=== PATIENT | female | born 1985 | race American Indian/Alaskan Native ===

== ENCOUNTER 2016-08-05 11:09 | Emergency (ER) | payer MEDICAID ==
--- NOTE | 2016-08-05 14:56 | Cat Scan Report ---
CT ORBITS WITHOUT CONTRAST: HISTORY: Right periorbital edema and pain. TECHNIQUE: Helical CT with sagittal and coronal reformatted images. FINDINGS: The visualized osseous structures are intact without fracture or malalignment. The paranasal sinuses are clear. The nasal septum is midline. The orbital rims are intact. The globes are symmetric with homogeneous density. The retro-orbital fat demonstrates no inflammatory stranding. The extraocular muscles are symmetric. The extraocular muscles and optic nerves demonstrate normal course. IMPRESSION: Normal CT of the orbits.
[2016-08-05] MEDS ORDERED: BENADRYL PO ONE (15:14)
[2016-08-05] MEDS ORDERED: DECADRON IM ONE (15:14)
[2016-08-05] MEDS ORDERED: PEPCID PO ONE (15:14)
[2016-08-05] MEDS ORDERED: TORADOL IM ONE (15:15)
[2016-08-05 17:07] VITALS: BP 116/82
--- NOTE | 2016-08-05 17:07 | Emergency Department Report ---
Entered by MILLICENT NEVILLE, acting as scribe for BROOKE REYES PA. ED Eye Problem HPI - General Chief complaint: Eye Problems Stated complaint: BLURRY VISION/EYE SWOLLEN Time Seen by Provider: 08/05/16 12:27 Source: patient Mode of arrival: Ambulatory Limitations: No Limitations - History of Present Illness Initial comments: 31 year old female with no significant PMHx presents to the ED c/o right eye swelling and pain that began this morning at 06:00. Patients states she applied an ice pack at 06:00 and went back to sleep. She woke up again at 09:00 this morning with right eye swelling and pain worse. Rates inner and outer right eye pain an 8/10, which radiates to the right side of head. Denies known injury or trauma. Associated symptoms include minimal blurry vision, headache, right eye itching and pain, but denies right eye trauma, fever, nausea, vomiting, purulent drainage, SOB, sore throat, numbness, tingling, abdominal pain, and chest pain. NKDA. MCKEON chief complaint: eye pain (right), other (right eye swelling) -: This morning (06:00) Onset Description: sudden Location: right eye Place: home If Injury: none Eye Symptoms: pain, itching, discharge (watery clear teary discharge), blurry vision Severity: moderate Severity scale (0 -10): 8 If Pain, Quality: aching Consistency: constant Associated Symptoms: headache (right side), neck pain (right side). denies: fever, shortness of breath Treatments Prior to Arrival: ice - Related Data Previous Rx's Medication Instructions Recorded Last Taken Type diphenhydrAMINE [Benadryl CAP] 25 mg PO Q6HR PRN #40 capsule 08/05/16 Unknown Rx predniSONE [Deltasone] 20 mg PO QDAY #5 tab 08/05/16 Unknown Rx Allergies Allergy/AdvReac Type Severity Reaction Status Date / Time No Known Allergies Allergy Unverified 08/05/16 11:48 ED Review of Systems Comment: All other systems reviewed and negative Constitutional: denies: chills, fever Eyes: eye pain (right eye), vision change (blurred), other. denies: eye discharge ENT: denies: ear pain, throat pain, congestion Respiratory: denies: cough, orthopnea, shortness of breath, SOB with exertion, SOB at rest, stridor Cardiovascular: denies: chest pain, dyspnea on exertion, orthopnea Gastrointestinal: denies: abdominal pain, nausea, vomiting Musculoskeletal: other (right side of neck pain) Skin: denies: rash Neurological: headache (right side) ED Past Medical Hx - Past Medical History Previous Medical History?: No - Surgical History Past Surgical History?: Yes Hx Cholecystectomy: Yes Additional Surgical History: - Social History Smoking Status: Never Smoker Substance Use Type: Alcohol - Medications Home Medications: Home Medications Medication Instructions Recorded Confirmed Last Taken Type diphenhydrAMINE [Benadryl CAP] 25 mg PO Q6HR PRN #40 capsule 08/05/16 Unknown Rx predniSONE [Deltasone] 20 mg PO QDAY #5 tab 08/05/16 Unknown Rx ED Physical Exam - General Limitations: No Limitations General appearance: alert, in no apparent distress - Head Head exam: Present: atraumatic, normocephalic, other (right frontal head tenderness) - Eye Eye exam: Present: normal appearance, PERRL, EOMI (Pain with medial eye movement ), periorbital swelling, periorbital tenderness, other (right eye tenderness). Absent: scleral icterus, conjunctival injection Pupils: Present: normal accommodation - Expanded Eye Exam Expanded Eyelids: Swelling: Bilateral Pupils: Regular, Round: Bilateral, Reactive: Bilateral Sclera/Conjunctival: Normal Inspection: Bilateral Anterior chamber: Normal Inspection: Bilateral Posterior chamber: Deferred: Bilateral Visual acuity (R) = 20/: 40 Visual acuity (L) = 20/: 70 With correction: Yes - ENT ENT exam: Present: normal exam, mucous membranes moist, TM's normal bilaterally , normal external ear exam - Neck Neck exam: Present: normal inspection, full ROM. Absent: tenderness, meningismus, lymphadenopathy - Respiratory Respiratory exam: Present: normal lung sounds bilaterally. Absent: respiratory distress, wheezes, rales, rhonchi, stridor - Cardiovascular Cardiovascular Exam: Present: regular rate, normal rhythm. Absent: systolic murmur, diastolic murmur, rubs, gallop - GI/Abdominal GI/Abdominal exam: Present: soft. Absent: distended, tenderness, guarding, rebound, rigid - Extremities Exam Extremities exam: Present: normal inspection, full ROM - Back Exam Back exam: Present: normal inspection, full ROM - Neurological Exam Neurological exam: Present: alert, oriented X3 - Psychiatric Psychiatric exam: Present: normal affect, normal mood - Skin Skin exam: Present: warm, dry, intact. Absent: rash ED Course Vital Signs 08/05/16 08/05/16 08/05/16 11:49 15:45 16:30 Temperature 98.0 F Pulse Rate 60 74 Respiratory 18 18 18 Rate Blood Pressure 117/71 Blood Pressure 132/84 [Left] O2 Sat by Pulse 100 100 Oximetry ED Medical Decision Making - Lab Data Vital Signs 08/05/16 08/05/16 08/05/16 11:49 15:45 16:30 Temperature 98.0 F Pulse Rate 60 74 Respiratory 18 18 18 Rate Blood Pressure 117/71 Blood Pressure 132/84 [Left] O2 Sat by Pulse 100 100 Oximetry - Radiology Data Radiology results: report reviewed CT ORBITS WITHOUT CONTRAST: HISTORY: Right periorbital edema and pain. TECHNIQUE: Helical CT with sagittal and coronal reformatted images. FINDINGS: The visualized osseous structures are intact without fracture or malalignment. The paranasal sinuses are clear. The nasal septum is midline. The orbital rims are intact. The globes are symmetric with homogeneous density. The retro-orbital fat demonstrates no inflammatory stranding. The extraocular muscles are symmetric. The extraocular muscles and optic nerves demonstrate normal course. IMPRESSION: Normal CT of the orbits. - Medical Decision Making 31-year-old female presents today with right eye pain and periorbital swelling. Her CT scan is within normal limits. Patient reported some symptomatic relief post medication. Referral for ophthalmology has been provided. Patient is in no acute distress at this time. She will be discharged home and is encouraged to follow up with a primary care provider. She will be sent home on Benadryl and steroids and is encouraged to return to the emergency room for any worsening symptoms. 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 Return to the emergency department if symptoms worsen. Prescriptions: diphenhydrAMINE [Benadryl CAP] 25 mg PO Q6HR PRN #40 capsule PRN Reason: Itching predniSONE [Deltasone] 20 mg PO QDAY #5 tab Referrals: PRIMARY CARE, [Primary Care Provider] - 3-5 Days HENRY SANTO MD [Staff Physician] - 3-5 Days Forms: Work/School Release Form(ED), Accompanied Note Time of Disposition: 17:01 This documentation as recorded by the JAMIN gallagher JASMINE,accurately reflects the service I personally performed and the decisions made by ERIC garcia NATASHA, PA.
== END 2016-08-05 17:06 | disposition home or self-care (01) ==
LOC: ED 11:09
DX: T78.40XA Allergy, unspecified, initial encounter (principal)
CPT/HCPCS: 70480; 81025; 96372; 99284; J1100; J1885

== ENCOUNTER 2016-12-14 11:37 | Emergency (ER) | payer MEDICAID, OTHER ==
[2016-12-14 12:35] VITALS: BP 118/99
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
== END 2016-12-14 17:54 | disposition home or self-care (01) ==
LOC: ED 11:37
DX: R51 Headache (principal); M54.9 Dorsalgia, unspecified; V49.59XA Passenger injured in collision with other motor vehicles in traffic accident, initial encounter; Y92.488 Other paved roadways as the place of occurrence of the external cause; Y93.89 Activity, other specified; Y99.9 Unspecified external cause status
CPT/HCPCS: 36415; 72070; 72100; 84703; 99283

== ENCOUNTER 2018-05-18 05:25 | Inpatient (IN) | payer OTHER ==
[2018-05-18] MEDS ORDERED: LACTATED RINGERS 2,000 ML ONE (06:06)
[2018-05-18] MEDS ORDERED: PEPCID IV ONE ×2 (06:07→11:10)
[2018-05-18] MEDS ORDERED: REGLAN IV ONE (06:07)
[2018-05-18] MEDS ORDERED: BICITRA PO ONE (06:07)
[2018-05-18] MEDS: LACTATED RINGERS 1,000 ML IV SCH ×2 (06:15→07:00)
[2018-05-18 06:33] LABS: Basophils # (Auto) 0.1 K/mm3 (0.0-0.1); Basophils % (Auto) 0.9 % (0.0-1.8); Eosinophils # (Auto) 0.1 K/mm3 (0.0-0.4); Eosinophils % (Auto) 1.2 % (0.0-4.3); Hematocrit 38.3 % (30.3-42.9); Hemoglobin 13.2 gm/dl (10.1-14.3); Lymphocytes # (Auto) 2.3 K/mm3 (1.2-5.4); Lymphocytes % (Auto) 30.2 % (13.4-35.0); Mean Corpuscular HGB Conc 34 % (30-34); Mean Corpuscular Volume 92 fl (79-97); Monocytes # (Auto) 0.9 K/mm3 (0.0-0.8); Monocytes % (Auto) 11.7 % (0.0-7.3); Platelet Count 295 K/mm3 (140-440); Red Blood Count 4.15 M/mm3 (3.65-5.03); Red Cell Distribution Width 14.2 % (13.2-15.2)
[2018-05-18] MEDS ORDERED: PITOCin/NS 20 UNIT/1000ML DRIP 20 UNITS/1,000 ML BAG IV SCH ×2 (07:00→14:00)
[2018-05-18] MEDS ORDERED: ANCEF/STERILE WATER 2 GM/20 ML 2 GM/20 ML SYRINGE IV NR (07:00)
[2018-05-18] MEDS ORDERED: DILAUDID IV PRN ×2 (10:51)
[2018-05-18] MEDS ORDERED: ZOFRAN IV PRN (10:51)
[2018-05-18] MEDS ORDERED: PHENERGAN PO PRN (10:51)
[2018-05-18] MEDS ORDERED: PHENERGAN PR PRN (10:51)
[2018-05-18] MEDS ORDERED: BENADRYL IV PRN (10:51)
[2018-05-18] MEDS ORDERED: NARCAN 0.4 MG/1 ML IV PRN ×2 (10:51→13:01)
--- NOTE | 2018-05-18 10:51 | Anesthesia Consultation ---
Anesthesia Consult and Med Hx Date of service: 05/18/18 - Airway Anesthetic Teeth Evaluation: Good ROM Head & Neck: Adequate Mental/Hyoid Distance: Adequate Mallampati Class: Class III Intubation Access Assessment: Possibly Difficult - Pre-Operative Health Status ASA Pre-Surgery Classification: ASA3 Proposed Anesthetic Plan: Epidural, Spinal - Pulmonary Hx Asthma: No COPD: No Hx Pneumonia: No - Cardiovascular System Hx Hypertension: No - Central Nervous System Hx Seizures: No Hx Psychiatric Problems: No - Endocrine Hx Renal Disease: No Hx End Stage Renal Disease: No Hx Insulin Dependent Diabetes: Yes (GDM on insulin) Hx Hypothyroidism: No Hx Hyperthyroidism: No - Hematic Hx Anemia: No Hx Sickle Cell Disease: No - Other Systems Hx Alcohol Use: No Hx Obesity: Yes (BMI 54.8)
--- NOTE | 2018-05-18 10:51 | Anesthesia Day of Surgery ---
Anesthesia Day of Surgery - Day of Surgery Patient Examined: Yes Patient H&P Reviewed: Yes Patient is NPO: Yes
[2018-05-18] MEDS ORDERED: TORADOL IV PRN (10:52)
[2018-05-18] MEDS ORDERED: SODIUM CHLORIDE FLUSH SYRINGE 10 ML IV SCH ×2 (11:00→14:00)
[2018-05-18] MEDS ORDERED: REGLAN ONE (11:10)
[2018-05-18] MEDS ORDERED: BICITRA ONE (12:19)
--- NOTE | 2018-05-18 12:57 | History and Physical Report ---
History of Present Illness Date of examination: 05/18/18 Date of admission: 05/18/18 05:25 Chief complaint: Previous History of present illness: 32-year-old 0-1 at 38+1 weeks who presents for a repeat delivery. The patient initiated care at [facility] at 13 weeks estimated gestational age. Her course is complicated by morbid obesity. gestational diabetes A2, and previous delivery. Past History Past Medical History: other (morbid obesity) Past Surgical History: cholecystectomy, section Social history: single - Obstetrical History Expected Date of Delivery: 05/31/18 Actual Gestation: 38 Week(s) 1 Day(s) : 4 Para: 1 Hx # Term Pregnancies: 1 Number of Pregnancies: 0 Spontaneous Abortions: 1 Induced : 1 Number of Living Children: 1 Medications and Allergies Allergies Allergy/AdvReac Type Severity Reaction Status Date / Time No Known Allergies Allergy Verified 05/18/18 06:07 Home Medications Medication Instructions Recorded Confirmed Last Taken Type Insulin NPH Human Isophane 28 units SQ HS 05/18/18 05/18/18 05/18/18 History [Humulin N] Insulin NPH Human Isophane 42 units SQ DAILY 05/18/18 05/18/18 05/17/18 History [Humulin N] Insulin Regular, Human [Humulin R] 20 units SQ DAILY 05/18/18 05/18/18 05/17/18 History Insulin Regular, Human [Humulin R] 40 units SQ HS 05/18/18 05/18/18 05/17/18 History Pnv No.95/Ferrous Fum/Folic AC 1 tab PO DAILY 05/18/18 05/18/18 05/17/18 History [ Vitamin Tablet] Active Meds: Active Medications Diphenhydramine HCl (Benadryl) 12.5 mg IV Q2H PRN PRN Reason: Itching Hydromorphone HCl (Dilaudid) 0.5 mg IV Q5M PRN PRN Reason: Breakthrough Pain Stop: 05/18/18 23:00 Hydromorphone HCl (Dilaudid) 0.5 mg IV Q4H PRN PRN Reason: breakthrough pain > 7/10 Cefazolin Sodium (Ancef/Sterile Water 2 Gm/20 Ml) 2 gm in 20 mls @ 80 mls/hr IV PREOP NR; Protocol Stop: 05/18/18 23:45 Lactated Ringer's (Lactated Ringers) 1,000 mls @ 2,250 mls/hr IV PREOP EVANGELINA Stop: 05/19/18 07:27 Last Admin: 05/18/18 07:00 Dose: 2,250 mls/hr Documented by: Oxytocin/Sodium Chloride (Pitocin/Ns 20 Unit/1000ml Drip) 20 units in 1,000 mls @ 0 mls/hr IV TITR EVANGELINA Ketorolac Tromethamine (Toradol) 30 mg IV Q6H PRN PRN Reason: Pain, Moderate (4-6) Stop: 05/23/18 10:51 Naloxone HCl (Narcan 0.4 Mg/1 Ml) 0.2 mg IV Q2MIN PRN PRN Reason: Res Rate </= 8 or 02 SAT < 92% Ondansetron HCl (Zofran) 4 mg IV Q8H PRN PRN Reason: Nausea And Vomiting Promethazine HCl (Phenergan) 25 mg PO Q6H PRN PRN Reason: Nausea And Vomiting Promethazine HCl (Phenergan) 25 mg [place] Q6H PRN PRN Reason: Nausea And Vomiting Sodium Chloride (Sodium Chloride Flush Syringe 10 Ml) 10 ml IV PRN EVANGELINA Review of Systems All systems: negative - Vital Signs Vital signs: Vital Signs Temp Pulse Resp BP 98.4 F 80 18 124/61 05/18/18 06:19 05/18/18 06:19 05/18/18 06:19 05/18/18 06:19 Temp Pulse Resp BP Pulse Ox 98.4 F 80 18 124/61 05/18/18 06:19 05/18/18 06:19 05/18/18 06:19 05/18/18 06:19 - Physical Exam Breasts: Positive: deferred Cardiovascular: Regular rate Lungs: Positive: Clear to auscultation Abdomen: Positive: other (obese) Results Result Diagrams: 05/18/18 06:19 Abnormal lab results 05/18/18 Range/Units 06:19 [place] % (Auto) 11.7 H (0.0-7.3) % [place] # 0.9 H (0.0-0.8) K/mm3 All other labs normal. Assessment and Plan - Patient Problems (1) Previous delivery affecting Current Visit: Yes Status: Acute Plan to address problem: Admit for a repeat delivery (2) Gestational diabetes mellitus, class A2 Current Visit: Yes Status: Acute (3) Morbid obesity Current Visit: Yes Status: Acute
[2018-05-18] MEDS ORDERED: TYLENOL PO PRN (13:01)
[2018-05-18] MEDS ORDERED: TUCKS PAD TP PRN (13:01)
[2018-05-18] MEDS ORDERED: LANSINOH TP PRN (13:01)
[2018-05-18] MEDS ORDERED: SENSORCAINE/DEXTR 0.75-8.25% INFILTRATI ONE (13:12)
[2018-05-18] MEDS ORDERED: NEO SYNEPHRINE/NS Syringe(OR USE) IV ONE ×3 (13:29→13:53)
[2018-05-18] MEDS ORDERED: WATER FOR IRRIG STERILE IR ONE (13:50)
[2018-05-18] MEDS ORDERED: NACL 0.9% IR ONE (13:50)
[2018-05-18] MEDS ORDERED: D5LR 1,000 ML IV SCH (14:00)
[2018-05-18] MEDS ORDERED: ASTRAMORPH PF 10MG/10ML ONE (14:14)
[2018-05-18] MEDS ORDERED: ZOFRAN ONE (14:16)
--- NOTE | 2018-05-18 14:43 | Operative Report ---
Operative Report Operative Report: Date of surgery: 05/18/2018 Preoperative diagnosis: at 38+1 weeks; status previous delivery; gestational diabetes A2; morbid obesity Postoperative diagnosis: Same as above Procedure: Repeat low transverse delivery Surgeon: Maribeth Thao M.D. Anesthesia: Regional Estimated blood loss: 800 mL Findings: Liveborn male with Apgars of 8 and 9 weight 7 lbs. 11 oz. Indications: A 32-year-old at 38+1 weeks who presents for repeat delivery secondary to gestational diabetes insulin requiring. Procedure: The patient was taken to the operating room and given regional anesthesia without complication. She was prepped and draped in a normal sterile fashion. A Pfannenstiel skin incision was made down to layer the fascia which was nicked in the midline extended laterally with the Bovie cautery. The superior aspect of the rectus fascia was grasped with Dundee clamps x2 and the rectus muscles off sharply. This was done in inferior fashion as well. The rectus muscle midline and peritoneum entered bluntly. There were peritoneal adhesions to the rectus muscles that were lysed with sharp dissection. An Cleve retractor was then inserted. A bladder blade was placed. The vesicouterine peritoneum was then entered sharply with Metzenbaum scissors. A bladder flap was created digitally. A low transverse uterine incision was then made and extended digitally. There was clear fluid upon entry into the uterine cavity. The head was delivered through the incision with fundal pressure. The cord was clamped and cut x2 and infant was passed off to pediatrics. The placenta was then manually extracted. The uterus was then exteriorized and cleared of clots and debris. The uterine incision was then closed in a running locked fashion with 0 Vicryl additional imbricating stitch was applied for 2 layer closure. The posterior cul-de-sac was then copiously irrigated. The uterus was replaced back into the abdomen and pelvis were the gutters were then irrigated. The Cleve retractor was then removed. The peritoneum was then reapproximated with 3-0 Vicryl incorporating the rectus muscle. The fascia was then closed with 0 Vicryl in a running fashion. The skin was then reapproximated with 3-0 Monocryl on a Collin needle subcuticular fashion. Steri-Strips to place across the incision and a Crede procedures performed at the end of the surgery. A pressure dressing was applied to the incision. The surgery productive of a liveborn male infant with Apgars of 8 and 9 weight 7 lbs. 11 oz. The patient was taken to the recovery room in stable condition. All sponge laps and needle counts correct x2.
[2018-05-18] MEDS: BENADRYL PO PRN (18:31)
[2018-05-18] MEDS ORDERED: NACL 0.9% 1000 ML 1,000 ML ONE (22:32)
[2018-05-18] MEDS ORDERED: NACL 0.9% 1000 ML 1,000 ML IV SCH (23:00)
[2018-05-19] MEDS: BENADRYL PO PRN ×4 (00:19→21:00)
[2018-05-19 00:57] LABS: Hematocrit 34.8 % (30.3-42.9); Hemoglobin 11.8 gm/dl (10.1-14.3)
[2018-05-19] MEDS: IBUPROFEN PO PRN ×2 (05:51→16:25)
--- NOTE | 2018-05-19 08:24 | Progress Note ---
Assessment and Plan - Patient Problems (1) Previous delivery affecting Current Visit: Yes Status: Acute Plan to address problem: routine postop care anticipate discharge home tomorrow (2) Gestational diabetes mellitus, class A2 Current Visit: Yes Status: Acute (3) Morbid obesity Current Visit: Yes Status: Acute Subjective - Subjective Date of service: 05/19/18 Interval history: Patient is tolerating clears. Sharp removed this am. States pain is controlled. Patient reports: appetite normal, pain well controlled : doing well Objective - Vital Signs Latest vital signs: Vital Signs Temp Pulse Resp BP BP Pulse Ox 05/19/18 04:26 99.0 F 97 H 20 121/60 94 05/19/18 00:15 86 20 120/76 97 05/18/18 21:45 99.0 F 99 H 20 116/65 97 05/18/18 16:25 99.6 F 87 18 127/58 05/18/18 16:24 71 144/84 05/18/18 16:00 98.2 F 74 20 104/70 100 05/18/18 15:45 69 18 109/59 100 05/18/18 15:30 72 20 116/67 100 05/18/18 15:15 67 20 130/76 100 05/18/18 15:00 72 16 104/62 100 05/18/18 14:55 70 18 114/62 100 05/18/18 14:48 97.8 F 72 20 115/59 100 05/18/18 13:33 89 136/85 05/18/18 13:25 86 136/86 Intake and Output 05/18/18 05/19/18 05/19/18 22:59 06:59 14:59 Intake Total 100 Output Total 650 Balance -550 Intake: Oral 100 Output: Urine 650 Indwelling Catheter 350 Other: Total, Intake Amount 100 Total, Output Amount 350 - Exam Abdomen: Present: other (obese) Incision: Present: dressed
[2018-05-19] MEDS: PERCOCET 5/325 PO PRN ×2 (16:24→21:01)
[2018-05-19] MEDS ORDERED: TRIPLE ANTIBIOTIC TP SCH (20:00)
[2018-05-19] MEDS: MYLICON PO PRN (21:18)
[2018-05-20] MEDS: IBUPROFEN PO PRN ×2 (03:59→14:15)
--- NOTE | 2018-05-20 12:27 | Progress Note ---
Assessment and Plan POD 2 s/p rltcs for gestational diabetes. Doing well. is in NICU due to low blood sugars. Will plan to stay until tomorrow unless otherwise indicated. Subjective - Subjective Date of service: 05/20/18 Patient reports: appetite normal, voiding normally, pain well controlled, flatus, ambulating normally : in NICU Objective - Vital Signs Latest vital signs: Vital Signs Temp Pulse Resp BP BP 05/20/18 00:55 98.6 F 66 18 114/72 05/19/18 16:01 98.7 F 20 121/71 Intake and Output 05/19/18 05/20/18 05/20/18 22:59 06:59 14:59 Intake Total 840 Balance 840 Intake: Intake, Free Water 840 - Exam Breasts: Present: deferred Cardiovascular: Present: Regular rate, Normal S1, Normal S2 Lungs: Present: Clear to auscultation, Normal air movement Abdomen: Present: normal appearance, soft, normal bowel sounds Vulva: both: normal Uterus: Present: normal, firm, fundal height below umbilicus Extremities: Present: normal Deep Tendon Reflex Grade: Normal +2 Incision: Present: normal, dry, intact
--- NOTE | 2018-05-20 12:29 | Discharge Summary ---
Providers - Providers Date of Admission: 05/18/18 05:25 Date of discharge: 05/21/18 Attending physician: NOMI LACY Primary care physician: NOMI LACY Hospitalization Reason for admission: section Delivery: Procedure: repeat low transverse Procedure details: see op report Incision: normal, dry, intact complications: none Discharge diagnosis: IUP at term delivered [place] baby: female Hospital course: unremarkable Condition at discharge: Good Disposition: DC-01 TO HOME OR SELFCARE Plan - Discharge Medications Prescriptions: Ibuprofen [Motrin] 800 mg PO Q8HR PRN #60 tablet PRN Reason: Pain, Mild (1-3) oxyCODONE /ACETAMINOPHEN [Percocet 5/325] 1 tab PO Q6HR PRN #30 tablet PRN Reason: Pain - Provider Discharge Summary Activity: routine, no sex for 6 weeks, no heavy lifting 4 weeks, no strenuous exercise Diet: routine Instructions: routine Additional instructions: [] Smoking cessation referral if applicable(refer to patient education folder for contact #) [] Refer to [facility]'s [facility] Booklet Call your doctor immediately for: * Fever > 100.5 * Heavy vaginal bleeding ( >1 pad per hour) * Severe persistent headache * Shortness of breath * Reddened, hot, painful area to leg or breast * Drainage or odor from incision. * Keep incision clean and dry at all times and follow doctor's instructions regarding bathing/showering - Follow up plan Follow up: NOMI LACY MD [Primary Care Provider] - 14 Days
[2018-05-20] MEDS: PERCOCET 5/325 PO PRN ×2 (14:15→23:44)
[2018-05-21 03:17] VITALS: BP 112/63
[2018-05-21] MEDS: IBUPROFEN PO PRN (05:57)
[2018-05-21] MEDS: MYLICON PO PRN (06:01)
== END 2018-05-21 17:00 | disposition home or self-care (01) | DRG 766 ==
LOC: APU 05:25 → OB 17:09
PROVIDERS: ADMIT Obstetrics & Gynecology; ATTEND Obstetrics & Gynecology
PROC: 10D00Z1 Extraction of Products of Conception, Low, Open Approach (ICD-10-PCS; principal; 2018-05-18)
DX: O34.211 Maternal care for low transverse scar from previous cesarean delivery (principal); E66.01 Morbid (severe) obesity due to excess calories; Z3A.38 38 weeks gestation of pregnancy; Z37.0 Single live birth; Z90.49 Acquired absence of other specified parts of digestive tract; O99.214 Obesity complicating childbirth; O24.425 Gestational diabetes mellitus in childbirth, controlled by oral hypoglycemic drugs
CPT/HCPCS: 36415; 82962; 85014; 85018; 85025; 86850; 86900; 86901; G0378; A6250; J0690; J2274; J2370; J2405; J2590; J2765; J7030; J7120

== ENCOUNTER 2021-01-02 09:42 | Emergency (ER) | payer SELFPAY ==
--- NOTE | 2021-01-02 10:37 | Emergency Department Report ---
ED Chest Pain HPI - General Chief Complaint: Chest Pain Stated Complaint: CHEST PAINS Time Seen by Provider: 01/02/21 09:55 Source: patient Mode of arrival: Ambulatory Limitations: No Limitations - History of Present Illness Initial Comments: The patient was evaluated in the emergency department for symptoms described in the history of present illness. He/she was evaluated in the context of the global COVID-19 pandemic, which necessitated consideration that the patient might be at risk for infection with the virus that causes COVID-19. Institutional protocols and algorithms that pertain to the evaluation of patients at risk for COVID-19 are in a state of rapid change based on information released by regulatory bodies including the CDC and federal and state organizations. These policies and algorithms were followed during the patient's care in the emergency department. Please note that these policies, procedures and recommendations changed on a rapid basis. 35-year-old morbid obese -[place] female presents to the emergency room complaining of chest pain and pain with swallowing. Patient states that it started on Tuesday and states that is progressively gotten worse. Patient states that the chest pain radiates up into her back and it feels achy. She states that trouble swallowing feels like something stuck in her throat. Patient states that she recently started on zinc and Ashwaghan. Patient denies any past medical history but review of chart shows she had gestational diabetes that was on insulin. She states she currently takes no medications on a daily basis. She has had the first dose of Covid vaccine last Tuesday. She states that she is taking nothing for pain but did take a Benadryl. She reports she is able to sip on water. MD Complaint: chest pain Onset/Timin -: days(s) Pain Location: substernal Pain Radiation: neck Severity: moderate Quality: aching Consistency: constant Improves With: nothing Worsens With: other (Swallowing) Other Symptoms: denies: cough, fever, syncope, rash, acid taste in mouth, leg swelling, palpitations, burping Treatments Prior to Arrival: none Aspirin use within the Past 7 Days: (0) No - Related Data Home Medications Medication Instructions Recorded Confirmed Last Taken Insulin NPH Human Isophane 28 units SQ HS 05/18/18 05/18/18 05/18/18 [Humulin N] Insulin NPH Human Isophane 42 units SQ DAILY 05/18/18 05/18/18 05/17/18 [Humulin N] Insulin Regular, Human [Humulin R] 20 units SQ DAILY 05/18/18 05/18/18 05/17/18 Insulin Regular, Human [Humulin R] 40 units SQ HS 05/18/18 05/18/18 05/17/18 Pnv No.95/Ferrous Fum/Folic AC 1 tab PO DAILY 05/18/18 05/18/18 05/17/18 [ Vitamin Tablet] Previous Rx's Medication Instructions Recorded Last Taken Type Ibuprofen [Motrin] 800 mg PO Q8HR PRN #60 tablet 05/19/18 Unknown Rx oxyCODONE /ACETAMINOPHEN [Percocet 1 tab PO Q6HR PRN #30 tablet 05/19/18 Unknown Rx 5/325] Allergies Allergy/AdvReac Type Severity Reaction Status Date / Time No Known Allergies Allergy Verified 05/18/18 06:07 Heart Score - HEART Score History: Slightly suspicious EKG: Normal Age: < 45 Risk factors: 1-2 risk factors Troponin: < normal limit HEART Score: 1 - EKG Read Time Time EKG Completed: 09:45 EKG Read Time: 09:48 ED Review of Systems ROS: Stated complaint: CHEST PAINS Other details as noted in HPI Comment: All other systems reviewed and negative ED Past Medical Hx - Past Medical History Previous Medical History?: Yes Hx Hypertension: No Hx Congestive Heart Failure: No Hx Diabetes: Yes (gestational) Hx Deep Vein Thrombosis: No Hx Renal Disease: No Hx Sickle Cell Disease: No Hx Seizures: No Hx Asthma: No Hx COPD: No Hx HIV: No - Surgical History Past Surgical History?: Yes Hx Cholecystectomy: Yes Additional Surgical History: - Social History Smoking Status: Never Smoker - Medications Home Medications: Home Medications Medication Instructions Recorded Confirmed Last Taken Type Insulin NPH Human Isophane 28 units SQ HS 05/18/18 05/18/18 05/18/18 History [Humulin N] Insulin NPH Human Isophane 42 units SQ DAILY 05/18/18 05/18/18 05/17/18 History [Humulin N] Insulin Regular, Human [Humulin R] 20 units SQ DAILY 05/18/18 05/18/18 05/17/18 History Insulin Regular, Human [Humulin R] 40 units SQ HS 05/18/18 05/18/18 05/17/18 History Pnv No.95/Ferrous Fum/Folic AC 1 tab PO DAILY 05/18/18 05/18/18 05/17/18 History [ Vitamin Tablet] Ibuprofen [Motrin] 800 mg PO Q8HR PRN #60 tablet 05/19/18 Unknown Rx oxyCODONE /ACETAMINOPHEN [Percocet 1 tab PO Q6HR PRN #30 tablet 05/19/18 Unknown Rx 5/325] ED Physical Exam - General Limitations: No Limitations General appearance: alert, obese - Head Head exam: Present: atraumatic, normocephalic - Eye Eye exam: Present: normal appearance - ENT ENT exam: Present: mucous membranes moist - Expanded ENT Exam Expanded Throat exam: Positive: normal inspection, tonsillar erythema. Negative: tonsillomegaly, tonsillar exudate - Neck Neck exam: Present: normal inspection - Respiratory Respiratory exam: Present: normal lung sounds bilaterally. Absent: respiratory distress, wheezes - Cardiovascular Cardiovascular Exam: Present: regular rate - GI/Abdominal GI/Abdominal exam: Present: soft. Absent: distended - Extremities Exam Extremities exam: Present: normal inspection - Back Exam Back exam: Present: normal inspection - Neurological Exam Neurological exam: Present: alert, oriented X3, normal gait - Psychiatric Psychiatric exam: Present: normal affect, normal mood - Skin Skin exam: Present: warm, dry, intact, normal color. Absent: rash ED Course Vital Signs 01/02/21 09:51 Temperature 98 F Pulse Rate 84 Respiratory 16 Rate Blood Pressure 123/64 [Left] O2 Sat by Pulse 96 Oximetry ANTHONY score - Anthony Score Age > 65: (0) No Aspirin use within the Past 7 Days: (0) No 3 or more CAD Risk Factors: (0) No 2 or more Angina events in past 24 hrs: (0) No Known CAD with more than 50% Stenosis: (0) No Elevated Cardiac Markers: (0) No ST Deviation Greater than 0.5mm: (0) No ANTHONY Score: 0 ED Medical Decision Making - Lab Data Result diagrams: 01/02/21 10:44 01/02/21 10:44 - Radiology Data Radiology results: report reviewed [facility] [address] [place] [address] XRay Report Signed Patient: ALEJANDRINA MCCLOUDSHERRIESerena SCHAEFER David Fuller#: [id number] : 1985 Acct:[id number] Age/Sex: 35 / F ADM Date: 01/02/21 Loc: ED Attending Dr: Ordering Physician: BERNA COON Date of Service: 01/02/21 Procedure(s): XR chest routine 2V Accession Number(s): [id number] cc: BERNA COON Fluoro Time In Minutes: CHEST 2 VIEWS INDICATION / CLINICAL INFORMATION: Chest pain. COMPARISON: None available. FINDINGS: SUPPORT DEVICES: None. HEART / MEDIASTINUM: No significant abnormality. LUNGS / PLEURA: No significant pulmonary or pleural abnormality. No pneumothorax. ADDITIONAL FINDINGS: No significant additional findings. IMPRESSION: 1. No acute findings. Signer Name: Kenn Boswell MD Signed: 01/02/2021 12:18 PM Workstation Name: [id number] Transcribed By: ISELA Dictated By: DANIELE BOSWELL MD Electronically Authenticated By: DANIELE BOSWELL MD Signed Date/Time: 01/02/211217 DD/ 17 TD/TT: Print Cancel - Medical Decision Making 35-year-old morbid obese -[place] female presents to the emergency room complaining of chest pain and pain with swallowing. Patient states that it started on Tuesday and states that is progressively gotten worse. Patient states that the chest pain radiates up into her back and it feels achy. She states that trouble swallowing feels like something stuck in her throat. Patient states that she recently started on zinc and Ashwaghan. Patient denies any past medical history but review of chart shows she had gestational diabetes that was on insulin. She states she currently takes no medications on a daily basis. She has had the first dose of Covid vaccine last Tuesday. She states that she is taking nothing for pain but did take a Benadryl. She reports she is able to sip on water. Chest x-ray shows no acute abnormalities, CBC within normal limits, glucose elevated at 166, negative troponin EKG is nonspecific. The patient is resting comfortably and feeling better, is alert and in no distress. The repeat examination is unremarkable and benign. The electrocardiogram shows no signs of acute ischemia and the history, exam, diagnostic testing and current condition do not suggest that this patient is having acute myocardial infarction, significant arrhythmia, unstable angina, esophageal perforation, pulmonary embolism, aortic dissection, pneumothorax, severe pneumonia, sepsis or other significant pathology that would warrant further testing, continued ED treatment, admission, or cardiology or other specialist consultation at this point. The vital signs have been stable. The patient's condition is stable and appropriate for discharge. The patient will pursue further outpatient evaluation with primary care physician, other designated physician or dukey rider. The patient and/or caregiver have expressed a clear in thorough understanding and agrees to the follow-up as instructed. Critical care attestation.: If time is entered above; I have spent that time in minutes in the direct care of this critically ill patient, excluding procedure time. ED Disposition Clinical Impression: Nonspecific chest pain, Sore throat (viral), Severely overweight Disposition: 01 HOME / SELF CARE / HOMELESS Is pt being admited?: No Does the pt Need Aspirin: No Condition: Stable Instructions: Nonspecific Chest Pain, Adult, Sore Throat, [id number], BMI for Adults Additional Instructions: Rapid strep is negative. CBC is within normal limits. Glucose is elevated at 166. Chest x-ray shows no acute abnormalities. EKG is stable. I recommend for you to follow-up with your primary care provider. And try taking ibuprofen or naproxen for pain of your skeletal muscles in your chest. Recommend weight loss. Referrals: PRIMARY CARE, [Primary Care Provider] - 3-5 Days Your, primary care provider [Other] - 3-5 Days [facility] [Provider Group] - 3-5 Days ALCIDES CHRISTIANSEN MD [Staff Physician] - 3-5 Days Forms: Work/School Release Form(ED) Time of Disposition: 15:18
[2021-01-02 11:27] LABS: Basophils % (Auto) 0.5 % (0.0-1.8); Eosinophils # (Auto) 0.1 K/mm3 (0.0-0.4); Eosinophils % (Auto) 0.8 % (0.0-4.3); Hematocrit 36.5 % (30.3-42.9); Hemoglobin 12.7 gm/dl (10.1-14.3); Lymphocytes # (Auto) 2.3 K/mm3 (1.2-5.4); Lymphocytes % (Auto) 30.4 % (13.4-35.0); Mean Corpuscular HGB Conc 35 % (30-34); Mean Corpuscular Volume 90 fl (79-97); Monocytes # (Auto) 0.7 K/mm3 (0.0-0.8); Monocytes % (Auto) 9.4 % (0.0-7.3); Platelet Count 355 K/mm3 (140-440); Red Blood Count 4.05 M/mm3 (3.65-5.03); Red Cell Distribution Width 12.7 % (13.2-15.2)
[2021-01-02 11:53] LABS: Alanine Aminotransferase 12 units/L (7-56); Blood Urea Nitrogen 5 mg/dL (7-17); Hemolysis Index 0
[2021-01-02 11:54] LABS: BUN/Creatinine Ratio 8
--- NOTE | 2021-01-02 12:22 | XRay Report ---
CHEST 2 VIEWS INDICATION / CLINICAL INFORMATION: Chest pain. COMPARISON: None available. FINDINGS: SUPPORT DEVICES: None. HEART / MEDIASTINUM: No significant abnormality. LUNGS / PLEURA: No significant pulmonary or pleural abnormality. No pneumothorax. ADDITIONAL FINDINGS: No significant additional findings. IMPRESSION: 1. No acute findings. Signer Name: Kenn Boswell MD Signed: 01/02/2021 12:18 PM Workstation Name: [id number]
[2021-01-02 15:14] VITALS: BP 129/87
--- NOTE | 2021-01-05 14:46 | Electrocardiograph Report ---
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
== END 2021-01-02 15:28 | disposition home or self-care (01) ==
LOC: ED 09:42
DX: R07.89 Other chest pain (principal); J02.9 Acute pharyngitis, unspecified; E11.9 Type 2 diabetes mellitus without complications; Z79.899 Other long term (current) drug therapy; Z79.4 Long term (current) use of insulin
CPT/HCPCS: 36415; 71046; 80053; 83690; 84484; 84702; 85025; 87116; 87430; 93005; 99283; 99284